=== PATIENT | female | born 1965 | race Caucasian/White ===

== ENCOUNTER 2016-03-16 15:15 | Emergency (ER) | payer OTHER ==
[2016-03-16 16:42] VITALS: BP 145/94
--- NOTE | 2016-03-16 17:14 | UC ---
Throat Pain/Nasal Robert HPI - HPI Summary HPI Summary: 50 yo female with sore throat since this AM swollen left ant cerv LN no f/c no URI symptoms - History of Current Complaint Chief Complaint: UCGeneralIllness Stated Complaint: SORE THROAT/SWOLLEN NECK Time Seen by Provider: 03/16/16 17:08 Hx Obtained From: Patient Onset/Duration: Gradual Onset, Lasting Hours Severity: Moderate Pain Intensity: 4 Pain Scale Used: 0-10 Numeric Cough: None - Epiglottits Risk Factors Epiglottis Risk Factors: Negative - Allergies/Home Medications Allergies/Adverse Reactions: Allergies Allergy/AdvReac Type Severity Reaction Status Date / Time Benzalkonium Chloride Allergy Intermediate Rash Verified 03/16/16 16:32 [From Ciprodex] Dexamethasone [From Ciprodex] Allergy Intermediate Rash Verified 03/16/16 16:32 Edetic Acid [From Ciprodex] Allergy Intermediate Rash Verified 03/16/16 16:32 Tyloxapol [From Ciprodex] Allergy Intermediate Rash Verified 03/16/16 16:32 Azithromycin [From Zithromax] Allergy Rash Verified 01/16/16 19:30 Codeine Allergy Vomiting Verified 01/16/16 19:30 Hydrocodone [From Vicodin] Allergy Vomiting Verified 01/16/16 19:30 Oxycodone [From Percocet] Allergy Vomiting Verified 01/16/16 19:30 Propoxyphene Allergy Vomiting Verified 01/16/16 19:30 [From Darvocet-N] tape Allergy Itching Uncoded 01/16/16 19:30 Home Medications: Home Medications SitaGLIPtin (NF) [Januvia (NF)] 100 mg PO DAILY 03/16/16 [History Confirmed 09/22] PMH/Surg Hx/FS Hx/Imm Hx Endocrine History Of: Reports: Diabetes - TYPE 2 Denies: Thyroid Disease Cardiovascular History Of: Reports: Hypertension Denies: Cardiac Disorders Respiratory History Of: Reports: Asthma Denies: COPD GI/ History Of: Reports: Gastroesophageal Reflux Denies: Ulcer - Surgical History Surgical History: Yes Surgery Procedure, Year, and Place: partial hysterectomy 1999. Gall bladder 1991. Tubal - Family History Known Family History: Positive: Cardiac Disease, Hypertension, Diabetes - Social History Alcohol Use: None Substance Use Type: None Smoking Status (MU): Former Smoker Have You Smoked in the Last Year: No When Did the Patient Quit Smoking/Using Tobacco: 5-10 YRS AGO - Immunization History Most Recent Influenza Vaccination: [id number] Review of Systems Constitutional: Negative Skin: Negative Eyes: Negative ENT: Sore Throat Respiratory: Negative Cardiovascular: Negative Gastrointestinal: Negative Genitourinary: Negative Motor: Negative Neurovascular: Negative Musculoskeletal: Arthralgia - chronic Neurological: Negative Psychological: Negative All Other Systems Reviewed And Are Negative: Yes Physical Exam Triage Information Reviewed: Yes Appearance: Well-Appearing, No Pain Distress, Well-Nourished Vital Signs: Initial Vital Signs Temp 98.5 F 03/16/16 16:36 Pulse 104 03/16/16 16:36 Resp 16 03/16/16 16:36 BP 145/94 03/16/16 16:36 Pulse Ox 97 03/16/16 16:36 Eyes: Positive: Conjunctiva Clear ENT: Positive: Hearing grossly normal, Pharyngeal erythema, TMs normal. Negative: Nasal congestion, Nasal drainage, TM bulging, TM dull, TM red, Tonsillar swelling, Tonsillar exudate, Trismus, Muffled/hoarse voice Dental: Negative: Dental Fracture @, Abscess @ Neck: Positive: Supple, Enlarged Nodes @ - left ant cervical Respiratory: Positive: Lungs clear, Normal breath sounds, No respiratory distress Cardiovascular: Positive: RRR, No Murmur, Tachycardia Musculoskeletal: Positive: Other: - IN WHEEL CHAIR DUE TO SEVERE DDD Neurological: Positive: Alert Psychological Exam: Normal Skin Exam: Normal Throat Pain/Nasal Course/Dx - Course Course Of Treatment: rs (-) - Differential Dx/Diagnosis Provider Diagnoses: ACUTE PHARYNGITIS Discharge - Discharge Plan Condition: Stable Disposition: HOME Prescriptions: Cephalexin CAP* [Keflex CAP*] 500 mg PO QID #20 cap Patient Education Materials: Pharyngitis (ED) Referrals: Jana Lord MD [Primary Care Provider] - Additional Instructions: RETURN FOR NEW OR WORSENING SYMPTOMS SEE YOUR MD ON 03/21 PLANNED
== END 2016-03-16 17:32 | disposition home or self-care (01) ==
LOC: UCCORT 15:15
DX: J02.9 Acute pharyngitis, unspecified (principal); E11.9 Type 2 diabetes mellitus without complications; Z87.891 Personal history of nicotine dependence; Z88.1 Allergy status to other antibiotic agents; Z88.5 Allergy status to narcotic agent
CPT/HCPCS: 87651; 99212; G0463

== ENCOUNTER 2016-07-14 15:31 | Emergency (ER) | payer OTHER ==
[2016-07-14 15:59] VITALS: BP 140/83
--- NOTE | 2016-07-14 16:40 | UC ---
Eye Complaint HPI - HPI Summary HPI Summary: Patient has been treated for a cellulitis of the upper eye lid of the left eye with amoxicillin, she has not been able to tolerate the amoxicillin as it hurts her stomach. she does not improvement in the eye swelling and pain. - History of Current Complaint Chief Complaint: UCEye Stated Complaint: EYE ISSUE Time Seen by Provider: 07/14/16 16:20 Hx Obtained From: Patient ?: No Onset/Duration: Sudden Onset, Lasting Days Severity Initially: Severe Severity Currently: Moderate Location of Injury: Conjunctiva, Eye Lid (upper) Associated Signs And Symptoms: Positive: Negative - Allergies/Home Medications Allergies/Adverse Reactions: Allergies Allergy/AdvReac Type Severity Reaction Status Date / Time Benzalkonium Chloride Allergy Intermediate Rash Verified 03/16/16 16:32 [From Ciprodex] Dexamethasone [From Ciprodex] Allergy Intermediate Rash Verified 03/16/16 16:32 Edetic Acid [From Ciprodex] Allergy Intermediate Rash Verified 03/16/16 16:32 Tyloxapol [From Ciprodex] Allergy Intermediate Rash Verified 03/16/16 16:32 Azithromycin [From Zithromax] Allergy Rash Verified 01/16/16 19:30 Codeine Allergy Vomiting Verified 01/16/16 19:30 Hydrocodone [From Vicodin] Allergy Vomiting Verified 01/16/16 19:30 Oxycodone [From Percocet] Allergy Vomiting Verified 01/16/16 19:30 Propoxyphene Allergy Vomiting Verified 01/16/16 19:30 [From Darvocet-N] Amoxicillin AdvReac Intermediate NAUSEA AND Verified 07/14/16 15:51 VOMITING. tape Allergy Itching Uncoded 01/16/16 19:30 PMH/Surg Hx/FS Hx/Imm Hx Previously Healthy: Yes - Surgical History Surgical History: Yes Surgery Procedure, Year, and Place: partial hysterectomy 1999. Gall bladder 1991. Tubal - Family History Known Family History: Positive: Cardiac Disease, Hypertension, Diabetes - Social History Alcohol Use: None Substance Use Type: None Smoking Status (MU): Former Smoker Have You Smoked in the Last Year: No When Did the Patient Quit Smoking/Using Tobacco: 5-10 YRS AGO - Immunization History Most Recent Influenza Vaccination: [id number] Review of Systems Constitutional: Negative Skin: Negative Eyes: Negative, Other - swelling of upper lid ENT: Negative Respiratory: Negative Cardiovascular: Negative Gastrointestinal: Negative Genitourinary: Negative Motor: Negative Neurovascular: Negative Musculoskeletal: Negative Neurological: Negative Psychological: Negative All Other Systems Reviewed And Are Negative: Yes Physical Exam Triage Information Reviewed: Yes Appearance: Well-Nourished, Ill-Appearing, Pain Distress Vital Signs: Initial Vital Signs Temp 98.6 F 07/14/16 15:54 Pulse 105 07/14/16 15:54 Resp 18 07/14/16 15:54 BP 140/83 07/14/16 15:54 Pulse Ox 95 07/14/16 15:54 Eyes: Positive: Conjunctiva Inflamed, Other: - upper eyelid swollen on left eye , left eye deviates laterally , sclera is white ENT Exam: Normal ENT: Positive: Hearing grossly normal, Pharynx normal, TMs normal Dental Exam: Normal Neck exam: Normal Neck: Positive: Supple, Nontender, No Lymphadenopathy Respiratory Exam: Normal Respiratory: Positive: Chest non-tender, Lungs clear, Normal breath sounds Cardiovascular Exam: Normal Cardiovascular: Positive: RRR, No Murmur, Pulses Normal Abdominal Exam: Normal Abdomen Description: Positive: Nontender, No Organomegaly, Soft Bowel Sounds: Positive: Present Musculoskeletal Exam: Normal Musculoskeletal: Positive: Strength Intact, ROM Intact, No Edema Neurological Exam: Normal Neurological: Positive: Alert, Muscle Tone Normal Psychological Exam: Normal Skin Exam: Normal Eye Complaint Course/Dx - Course Course Of Treatment: hx obtained, exam performed ,meds reviewed, treated for cellulitis - Differential Dx/Diagnosis Differential Diagnosis/HQI/PQRI: Corneal Abrasion, Detached Retina, Periorbital Cellulitis, Other Provider Diagnoses: orbital cellulitis of left eye Discharge - Discharge Plan Condition: Stable Disposition: HOME Patient Education Materials: Orbital Cellulitis (ED) Additional Instructions: 1. stop the amoxicillin 2. start the keflex. 3. continue with the warm compresses multiple times a day.
== END 2016-07-14 16:45 | disposition home or self-care (01) ==
LOC: UCCORT 15:31
DX: H05.012 Cellulitis of left orbit (principal); Z88.5 Allergy status to narcotic agent; Z88.0 Allergy status to penicillin; Z87.891 Personal history of nicotine dependence
CPT/HCPCS: 99212; G0463

== ENCOUNTER 2016-12-31 16:58 | Emergency (ER) | payer OTHER ==
--- NOTE | 2016-12-31 17:26 | UC ---
Shoulder Pain HPI - HPI Summary HPI Summary: 51 year old female presents with complains of right shoulder pain with no trauma. - History of Current Complaint Stated Complaint: RT SHOULDER PAIN Time Seen by Provider: 12/31/16 17:26 Hx Obtained From: Patient Onset/Duration: Lasting Weeks Timing: Constant Severity Initially: Moderate Severity Currently: Moderate Pain Scale Used: 0-10 Numeric - 8 Character: Sharp Aggravating Factor(s): Movement, Lifting, Flexion, Extension, External Rotation , Abduction Alleviating Factor(s): Rest Associated Signs And Symptoms: Positive: Negative - Allergies/Home Medications Allergies/Adverse Reactions: Allergies Allergy/AdvReac Type Severity Reaction Status Date / Time Benzalkonium Chloride Allergy Intermediate Rash Verified 12/31/16 17:30 [From Ciprodex] Dexamethasone [From Ciprodex] Allergy Intermediate Rash Verified 12/31/16 17:30 Edetic Acid [From Ciprodex] Allergy Intermediate Rash Verified 12/31/16 17:30 Tyloxapol [From Ciprodex] Allergy Intermediate Rash Verified 12/31/16 17:30 Azithromycin [From Zithromax] Allergy Rash Verified 12/31/16 17:30 Codeine Allergy Vomiting Verified 12/31/16 17:30 Hydrocodone [From Vicodin] Allergy Vomiting Verified 12/31/16 17:30 Oxycodone [From Percocet] Allergy Vomiting Verified 12/31/16 17:30 Propoxyphene Allergy Vomiting Verified 12/31/16 17:30 [From Darvocet-N] Amoxicillin AdvReac Intermediate NAUSEA AND Verified 12/31/16 17:30 VOMITING. tape Allergy Itching Uncoded 12/31/16 17:30 PMH/Surg Hx/FS Hx/Imm Hx Previously Healthy: Yes - Surgical History Surgical History: Yes Surgery Procedure, Year, and Place: partial hysterectomy 1999. Gall bladder 1991. Tubal - Family History Known Family History: Positive: Cardiac Disease, Hypertension, Diabetes - Social History Alcohol Use: None Substance Use Type: None Smoking Status (MU): Former Smoker Have You Smoked in the Last Year: No When Did the Patient Quit Smoking/Using Tobacco: 5-10 YRS AGO - Immunization History Most Recent Influenza Vaccination: [id number] Review of Systems Constitutional: Negative Skin: Negative Eyes: Negative ENT: Negative Respiratory: Negative Cardiovascular: Negative Gastrointestinal: Negative Genitourinary: Negative Motor: Negative Neurovascular: Negative Musculoskeletal: Other: - right shoulder pain Neurological: Negative Psychological: Negative All Other Systems Reviewed And Are Negative: Yes Physical Exam Triage Information Reviewed: Yes Vital Signs Reviewed: Yes Eye Exam: Normal ENT Exam: Normal Dental Exam: Normal Neck exam: Normal Neck: Positive: 1 Respiratory Exam: Normal Cardiovascular Exam: Normal Abdominal Exam: Normal Musculoskeletal: Positive: Other: - right shoulder pain Neurological Exam: Normal Psychological Exam: Normal Skin Exam: Normal Shoulder Course/Dx - Differential Dx/Diagnosis Provider Diagnoses: right shoulder pain Discharge - Discharge Plan Condition: Stable Disposition: HOME Patient Education Materials: Shoulder Pain (ED) Referrals: Jana Lord MD [Primary Care Provider] -
[2016-12-31 17:30] VITALS: BP 138/88
--- NOTE | 2016-12-31 18:03 | RAD ---
INDICATION: Right shoulder pain. TECHNIQUE: 4 views of the right shoulder were obtained. FINDINGS: The bones are in normal alignment. No fracture is seen. There is moderate osteoarthritic change in the acromioclavicular joint and mild osteoarthritic change in the glenohumeral joint. IMPRESSION: MILD TO MODERATE OSTEOARTHRITIC CHANGE.
== END 2016-12-31 18:17 | disposition home or self-care (01) ==
LOC: UCCORT 16:58
DX: M25.511 Pain in right shoulder (principal); Z88.1 Allergy status to other antibiotic agents; Z88.5 Allergy status to narcotic agent; Z88.8 Allergy status to other drugs, medicaments and biological substances; Z91.048 Other nonmedicinal substance allergy status; Z87.891 Personal history of nicotine dependence
CPT/HCPCS: 99212; G0463

== ENCOUNTER 2017-02-17 13:43 | Emergency (ER) | payer OTHER ==
[2017-02-17 14:38] VITALS: BP 155/83
--- NOTE | 2017-02-17 15:55 | UC ---
Throat Pain/Nasal Robert HPI - HPI Summary HPI Summary: 51 YO FEMALE WITH 4-6 WEEK HX OF SINUS PRESSURE AND PAIN NO F/C IN AMs SHE OFTEN NOTES A BLOODY NASAL D/C FOLLOWED BY THICK NASAL DISCHARGE MEDINA NO WHEEZING NO CP OR SOB - History of Current Complaint Chief Complaint: UCGeneralIllness Stated Complaint: STUFFY NOSE,SNEEZING,RESPIRTORY Time Seen by Provider: 02/17/17 15:49 Hx Obtained From: Patient Hx Last Menstrual Period: n/a Onset/Duration: Gradual Onset, Lasting Weeks Severity: Mild Pain Intensity: 3 Pain Scale Used: 0-10 Numeric Cough: None Associated Signs & Symptoms: Positive: Sinus Discomfort, Nasal Discharge - Allergies/Home Medications Allergies/Adverse Reactions: Allergies Allergy/AdvReac Type Severity Reaction Status Date / Time Benzalkonium Chloride Allergy Intermediate Rash Verified 02/17/17 14:38 [From Ciprodex] Dexamethasone [From Ciprodex] Allergy Intermediate Rash Verified 02/17/17 14:38 Edetic Acid [From Ciprodex] Allergy Intermediate Rash Verified 02/17/17 14:38 Tyloxapol [From Ciprodex] Allergy Intermediate Rash Verified 02/17/17 14:38 Azithromycin [From Zithromax] Allergy Rash Verified 02/17/17 14:38 Codeine Allergy Vomiting Verified 02/17/17 14:38 Hydrocodone [From Vicodin] Allergy Vomiting Verified 02/17/17 14:38 Oxycodone [From Percocet] Allergy Vomiting Verified 02/17/17 14:38 Propoxyphene Allergy Vomiting Verified 02/17/17 14:38 [From Darvocet-N] Amoxicillin AdvReac Intermediate NAUSEA AND Verified 02/17/17 14:38 VOMITING. tape Allergy Itching Uncoded 02/17/17 14:38 PMH/Surg Hx/FS Hx/Imm Hx Endocrine History: Diabetes Cardiovascular History: Hypertension Respiratory History: Asthma - Surgical History Surgical History: Yes Surgery Procedure, Year, and Place: partial hysterectomy 1999. Gall bladder 1991. Tubal - Family History Known Family History: Positive: Cardiac Disease, Hypertension, Diabetes - Social History Alcohol Use: None Substance Use Type: None Smoking Status (MU): Former Smoker Have You Smoked in the Last Year: No When Did the Patient Quit Smoking/Using Tobacco: 5-10 YRS AGO - Immunization History Most Recent Influenza Vaccination: current for Review of Systems Constitutional: Negative Skin: Negative Eyes: Negative ENT: Nasal Discharge, Sinus Congestion, Sinus Pain/Tenderness Respiratory: Negative Cardiovascular: Negative Gastrointestinal: Negative Genitourinary: Negative Motor: Negative Neurovascular: Negative Musculoskeletal: Negative Neurological: Negative Psychological: Negative Is Patient Immunocompromised?: No All Other Systems Reviewed And Are Negative: Yes Physical Exam Triage Information Reviewed: Yes Appearance: Well-Appearing, No Pain Distress, Well-Nourished Vital Signs: Initial Vital Signs Temp 98.0 F 02/17/17 14:34 Pulse 99 02/17/17 14:34 Resp 16 02/17/17 14:34 BP 155/83 02/17/17 14:34 Pulse Ox 98 02/17/17 14:34 Vital Signs Reviewed: Yes Eyes: Positive: Conjunctiva Clear ENT: Positive: Hearing grossly normal, Nasal congestion, Nasal drainage, TMs normal, Sinus tenderness, Uvula midline Neck: Positive: Supple, Nontender, No Lymphadenopathy Respiratory: Positive: Lungs clear, Normal breath sounds, No respiratory distress Cardiovascular: Positive: RRR, No Murmur Musculoskeletal: Positive: ROM Intact, No Edema Neurological: Positive: Alert Psychological Exam: Normal Skin Exam: Normal Diagnostics - Laboratory Diagnostic Studies Completed/Ordered: PULSE OX (RA) 98% COMMENT: NORMAL/ NOT HYPOXIC Throat Pain/Nasal Course/Dx - Differential Dx/Diagnosis Provider Diagnoses: ACUTE SINUSITIS Discharge - Discharge Plan Condition: Stable Disposition: HOME Prescriptions: Amoxicillin PO (*) [Amoxicillin 875 MG (*)] 875 mg PO BID #20 tab Patient Education Materials: Sinusitis (ED) Referrals: Jana Lord MD [Primary Care Provider] - 5 Days (IF NOT BETTER) Additional Instructions: SALINE NASAL SPRAY TWICE DAILY
== END 2017-02-17 16:03 | disposition home or self-care (01) ==
LOC: UCCORT 13:43
DX: J01.90 Acute sinusitis, unspecified (principal); E11.9 Type 2 diabetes mellitus without complications; I10 Essential (primary) hypertension; J45.909 Unspecified asthma, uncomplicated; Z87.891 Personal history of nicotine dependence; Z88.3 Allergy status to other anti-infective agents; Z88.5 Allergy status to narcotic agent
CPT/HCPCS: 99212; G0463

== ENCOUNTER 2017-06-22 19:06 | Emergency (ER) | payer OTHER ==
[2017-06-22 19:22] VITALS: BP 149/90
--- NOTE | 2017-06-22 19:35 | UC ---
Skin Complaint HPI - HPI Summary HPI Summary: Pt c/o sudden onset of painful sore on roof of mouth that began 2 days ago. Pt has been applying OTC numbing medication with temporary relief. Pt now says that area looks like a "cut on the roof of her mouth". - History of Current Complaint Chief Complaint: UCDentalProblem Time Seen by Provider: 06/22/17 19:24 Stated Complaint: ORAL COMPLAINT Hx Obtained From: Patient Hx Last Menstrual Period: n/a ?: No Onset/Duration: Sudden Onset, Still Present Skin Exposure Onset/Duration: Days Ago Timing: Constant Onset Severity: Mild Current Severity: Mild Pain Intensity: 7 Location: Discrete Character: Painful Aggravating Factor(s): Touch Alleviating Factor(s): OTC Meds Associated Signs & Symptoms: Positive: Tenderness - Allergy/Home Medications Allergies/Adverse Reactions: Allergies Allergy/AdvReac Type Severity Reaction Status Date / Time azithromycin Allergy Rash Verified 06/22/17 19:46 benzalkonium Allergy Rash Verified 06/22/17 19:46 dexamethasone Allergy Rash Verified 06/22/17 19:46 edetic acid Allergy Rash Verified 06/22/17 19:46 tyloxapol Allergy Rash Verified 06/22/17 19:46 amoxicillin AdvReac Nausea And Verified 06/22/17 19:46 Vomiting codeine AdvReac Vomiting Verified 06/22/17 19:46 hydrocodone AdvReac Vomiting Verified 06/22/17 19:46 oxycodone AdvReac Vomiting Verified 06/22/17 19:46 propoxyphene AdvReac Vomiting Verified 06/22/17 19:46 tape Allergy Itching Uncoded 02/17/17 14:38 Review of Systems Constitutional: Negative Skin: Negative Eyes: Negative ENT: Other - mouth pain/sore Respiratory: Negative Cardiovascular: Negative Gastrointestinal: Negative Genitourinary: Negative Motor: Negative Neurovascular: Negative Musculoskeletal: Negative Neurological: Negative Psychological: Negative Is Patient Immunocompromised?: No All Other Systems Reviewed And Are Negative: Yes PMH/Surg Hx/FS Hx/Imm Hx Previously Healthy: Yes - Surgical History Surgical History: Yes Surgery Procedure, Year, and Place: partial hysterectomy 1999. Gall bladder 1991. Tubal - Family History Known Family History: Positive: Cardiac Disease, Hypertension, Diabetes - Social History Lives: With Family Alcohol Use: None Substance Use Type: None Smoking Status (MU): Former Smoker Have You Smoked in the Last Year: No When Did the Patient Quit Smoking/Using Tobacco: 5-10 YRS AGO - Immunization History Most Recent Influenza Vaccination: current for Physical Exam Triage Information Reviewed: Yes Appearance: Well-Appearing Vital Signs: Initial Vital Signs Temp 97.9 F 06/22/17 19:17 Pulse 95 06/22/17 19:17 Resp 14 06/22/17 19:17 BP 149/90 06/22/17 19:17 Pulse Ox 98 06/22/17 19:17 Vital Signs Reviewed: Yes Eye Exam: Normal ENT Exam: Normal Dental: Positive: Other: - soft palate sore Neck exam: Normal Respiratory Exam: Normal Musculoskeletal Exam: Normal Neurological Exam: Normal Psychological Exam: Normal Skin Exam: Other - mouth sore middle soft palate Course/Dx - Diagnoses Provider Diagnoses: healing canker sore soft palate Discharge - Sign-Out/Discharge Documenting (check all that apply): Discharge/Admit/Transfer - Discharge Plan Condition: Stable Disposition: HOME Prescriptions: Lidocaine 2% VISCOUS* [Xylocaine 2% Viscous*] 15 ml SWISH SPIT Q6H PRN #1 btl PRN Reason: Pain Patient Education Materials: Canker Sores (ED) Referrals: Jana Lord MD [Primary Care Provider] - If Needed - Billing Disposition and Condition Condition: STABLE Disposition: HOME
== END 2017-06-22 19:45 | disposition home or self-care (01) ==
LOC: UCCORT 19:06
DX: K12.0 Recurrent oral aphthae (principal); Z88.1 Allergy status to other antibiotic agents; Z88.5 Allergy status to narcotic agent; Z88.0 Allergy status to penicillin; Z88.8 Allergy status to other drugs, medicaments and biological substances
CPT/HCPCS: 99212; G0463

== ENCOUNTER 2018-05-01 17:06 | Emergency (ER) | payer OTHER ==
[2018-05-01 17:32] VITALS: BP 148/67
--- NOTE | 2018-05-01 18:53 | UC ---
UC General HPI - HPI Summary HPI Summary: PT C/O FEELING HOT THEN CHILLED X 6 DAYS. SHE ALSO NOTED L SIDE OF NOSE WAS A LITTLE DRY AND BLOODY. SHE DID HAVE A MILD HEADACHE BUT NONE NOW. PT ALSO NOTES AN ITCHY RASH ON HER CHEST, TX WITH TOPICAL STEROID. HX DM, BS STABLE. NO COUGH, SOB, V/D/DYSURIA. - History of Current Complaint Chief Complaint: UCRespiratory Stated Complaint: FEVER, CHILLS, CONGESTION Time Seen by Provider: 05/01/18 18:45 Hx Obtained From: Patient Hx Last Menstrual Period: n/a Pain Intensity: 4 Associated Signs & Symptoms: Negative: Chest Pain - Allergy/Home Medications Allergies/Adverse Reactions: Allergies Allergy/AdvReac Type Severity Reaction Status Date / Time azithromycin Allergy Rash Verified 05/01/18 17:24 benzalkonium Allergy Rash Verified 05/01/18 17:24 dexamethasone Allergy Rash Verified 05/01/18 17:24 edetic acid Allergy Rash Verified 05/01/18 17:24 tyloxapol Allergy Rash Verified 05/01/18 17:24 amoxicillin AdvReac Nausea And Verified 05/01/18 17:24 Vomiting codeine AdvReac Vomiting Verified 05/01/18 17:24 hydrocodone AdvReac Vomiting Verified 05/01/18 17:24 oxycodone AdvReac Vomiting Verified 05/01/18 17:24 propoxyphene AdvReac Vomiting Verified 05/01/18 17:24 tape Allergy Itching Uncoded 05/01/18 17:24 Home Medications: Home Medications Insulin Glargine,Hum.rec.anlog [Ivan Wiseman U-100] 40 unit QAM 05/01/18 [ History Confirmed 05/01/18] PMH/Surg Hx/FS Hx/Imm Hx - Additional Past Medical History Additional PMH: LAZY EYE Endocrine History: Diabetes Cardiovascular History: Hypertension GI/ History: Gastroesophageal Reflux Psychological History: Anxiety - Surgical History Surgical History: Yes Surgery Procedure, Year, and Place: partial hysterectomy 1999. Gall bladder 1991. Tubal - Family History Known Family History: Positive: Cardiac Disease, Hypertension, Diabetes - Social History Alcohol Use: None Substance Use Type: None Smoking Status (MU): Former Smoker Have You Smoked in the Last Year: No When Did the Patient Quit Smoking/Using Tobacco: 5-10 YRS AGO - Immunization History Most Recent Influenza Vaccination: current for Review of Systems All Other Systems Reviewed And Are Negative: Yes Constitutional: Positive: Fever, Chills Skin: Positive: Rash ENT: Positive: Nasal Discharge - L NARE Neurological: Positive: Headache Physical Exam Triage Information Reviewed: Yes Appearance: Well-Appearing Vital Signs: Initial Vital Signs Temp 97.2 F 05/01/18 17:25 Pulse 67 05/01/18 17:25 Resp 18 05/01/18 17:25 BP 148/67 05/01/18 17:25 Pulse Ox 98 05/01/18 17:25 Vital Signs Reviewed: Yes Eyes: Positive: Conjunctiva Inflamed ENT: Positive: Pharynx normal, TMs normal. Negative: Nasal drainage Neck: Positive: Supple, Nontender, No Lymphadenopathy Respiratory: Positive: Lungs clear, Normal breath sounds, No respiratory distress Cardiovascular: Positive: RRR, No Murmur Abdomen Description: Positive: Nontender, No Organomegaly, Soft Bowel Sounds: Positive: Present Musculoskeletal: Positive: ROM Intact Neurological: Positive: Alert Psychological: Positive: Age Appropriate Behavior Skin Exam: Normal, Other - ABOUT 6 SMALL PINK AREAS ON CHEST WITH MILD EXCORIATION. NO BLISTERING, NOT PETECHIAL AND NO BURROWS. Course/Dx - Differential Dx - Multi-Symptom Differential Diagnoses: Other - NO INDICATION FOR ANTIBIOTIC - Diagnoses Provider Diagnosis: Rash, Viral syndrome Discharge - Sign-Out/Discharge Documenting (check all that apply): Patient Departure All imaging exams completed and their final reports reviewed: No Studies - Discharge Plan Condition: Stable Disposition: HOME Patient Education Materials: Acute Rash (ED), Viral Syndrome (ED) Referrals: Jana Lord MD [Primary Care Provider] - Additional Instructions: FOLLOW UP PRIMARY CARE IF NOT BETTER IN 3 DAYS OR SOONER IF WORSE. - Billing Disposition and Condition Condition: STABLE Disposition: Home - Attestation Statements Provider Attestation: Per institutional requirements, I have reviewed the chart, however, I was not consulted specifically or made aware of this patient by the midlevel provider. I did not personally evaluate, interact with , or disposition this patient.
== END 2018-05-01 19:02 | disposition home or self-care (01) ==
LOC: UCCORT 17:06
DX: B34.9 Viral infection, unspecified (principal); R21 Rash and other nonspecific skin eruption; R51 Headache; E11.9 Type 2 diabetes mellitus without complications; Z88.0 Allergy status to penicillin; Z88.8 Allergy status to other drugs, medicaments and biological substances; Z88.5 Allergy status to narcotic agent; Z91.09 Other allergy status, other than to drugs and biological substances; Z79.4 Long term (current) use of insulin; Z87.891 Personal history of nicotine dependence
CPT/HCPCS: 99211; G0463

== ENCOUNTER 2018-09-09 08:45 | Emergency (ER) | payer OTHER ==
[2018-09-09 09:16] VITALS: BP 152/96
--- NOTE | 2018-09-09 09:37 | UC ---
Skin Complaint HPI - HPI Summary HPI Summary: 53-year-old female presents with concerns for an infected cyst on her back. Patient states that at the end of last month she was evaluated at the [facility] emergency room for similar concern. States they did open and draining the cyst at that time. She followed up with her primary care provider on 09/02/2018 and was having some improvement in her symptoms. States that the wound has since closed up and over the past few days they have noticed that it is become red, tender and swollen. Patient states her has tried to squeeze the lesions and has expressed a small amount of brownish colored drainage. Denies fever or chills. - History of Current Complaint Chief Complaint: UCSkin Time Seen by Provider: 09/09/18 09:22 Stated Complaint: SKIN COMPLAINT Hx Obtained From: Patient Hx Last Menstrual Period: n/a Pain Intensity: 0 - Allergy/Home Medications Allergies/Adverse Reactions: Allergies Allergy/AdvReac Type Severity Reaction Status Date / Time azithromycin Allergy Rash Verified 09/09/18 09:18 benzalkonium Allergy Rash Verified 09/09/18 09:18 dexamethasone Allergy Rash Verified 09/09/18 09:18 edetic acid Allergy Rash Verified 09/09/18 09:18 tyloxapol Allergy Rash Verified 09/09/18 09:18 amoxicillin AdvReac Nausea And Verified 09/09/18 09:18 Vomiting codeine AdvReac Vomiting Verified 09/09/18 09:18 hydrocodone AdvReac Vomiting Verified 09/09/18 09:18 oxycodone AdvReac Vomiting Verified 09/09/18 09:18 propoxyphene AdvReac Vomiting Verified 09/09/18 09:18 tape Allergy Itching Uncoded 09/09/18 09:18 PMH/Surg Hx/FS Hx/Imm Hx Endocrine History: Diabetes Cardiovascular History: Hypertension Respiratory History: COPD GI/ History: Gastroesophageal Reflux - Surgical History Surgical History: Yes Surgery Procedure, Year, and Place: partial hysterectomy 1999. Gall bladder 1991. Tubal - Family History Known Family History: Positive: Cardiac Disease, Hypertension, Diabetes - Social History Occupation: Unemployed Lives: With Family Alcohol Use: None Substance Use Type: None Smoking Status (MU): Former Smoker Have You Smoked in the Last Year: No When Did the Patient Quit Smoking/Using Tobacco: 5-10 YRS AGO - Immunization History Most Recent Influenza Vaccination: current for Review of Systems All Other Systems Reviewed And Are Negative: Yes Constitutional: Negative: Fever, Chills Skin: Positive: Other - See HPI Respiratory: Positive: Negative Cardiovascular: Positive: Negative Gastrointestinal: Positive: Negative Genitourinary: Positive: Negative Musculoskeletal: Positive: Negative Neurological: Positive: Negative Is Patient Immunocompromised?: No Physical Exam - Summary Physical Exam Summary: GENERAL APPEARANCE: Well developed, well nourished, alert and cooperative, and appears to be in no acute distress. CARDIAC: Normal S1 and S2. No S3, S4 or murmurs. Rhythm is regular. There is no peripheral edema, cyanosis or pallor. Extremities are warm and well perfused. Capillary refill is less than 2 seconds. Peripheral pulses intact. LUNGS: Clear to auscultation without rales, rhonchi, wheezing or diminished breath sounds. ABDOMEN: Positive bowel sounds. Soft, nondistended, nontender. No guarding or rebound. No masses or hepatosplenomegally. MUSKULOSKELETAL: ROM intact to all extremities. No joint erythema or tenderness. Normal muscular development. Normal gait. SKIN: 8 cm area of erythema and edema to the mid upper thoracic back with small amount of purulent drainage. No induration or fluctuance noted. There does appear to be a large cystic mass below the area of erythema approximately 10 cm in diameter. Triage Information Reviewed: Yes Vital Signs: Initial Vital Signs Temp 97.3 F 09/09/18 09:08 Pulse 98 09/09/18 09:08 Resp 18 09/09/18 09:08 BP 152/96 09/09/18 09:08 Pulse Ox 99 09/09/18 09:08 Vital Signs Reviewed: Yes Course/Dx - Course Course Of Treatment: 53-year-old female presents with concerns for an infected cyst on her back. Patient states that at the end of last month she was evaluated at the [facility] emergency room for similar concern. States they did open and draining the cyst at that time. She followed up with her primary care provider on 09/02/2018 and was having some improvement in her symptoms. States that the wound has since closed up and over the past few days they have noticed that it is become red, tender and swollen. Patient states her has tried to squeeze the lesions and has expressed a small amount of brownish colored drainage. Denies fever or chills. Afebrile. Hypertensive otherwise vital signs stable. Patient had a 8 cm area of erythema and edema to the mid upper thoracic back with small amount of purulent drainage. No induration or fluctuance noted. There does appear to be a large cystic mass below the area of erythema approximately 10 cm in diameter. This is consistent with an infected sebaceous cyst and I am recommending that we treat the infection at this time and have her follow-up with her primary care provider in 3 days for recheck. She will likely need follow-up with surgery for definitive removal of the sebaceous cyst. She is to take clindamycin 300 mg 3 times a day 7 days. Anticipatory guidance and warning symptoms were reviewed with the patient. Verbalizes understanding and agrees to plan of care. - Differential Diagnoses - Skin Complaint Differential Diagnoses: Abscess, Cellulitis, MRSA - Diagnoses Provider Diagnosis: Infected sebaceous cyst Discharge - Sign-Out/Discharge Documenting (check all that apply): Patient Departure All imaging exams completed and their final reports reviewed: No Studies - Discharge Plan Condition: Stable Disposition: HOME Prescriptions: Clindamycin HCl 300 mg PO TID #21 capsule Patient Education Materials: Cellulitis (ED) Referrals: Jana Lord MD [Primary Care Provider] - 3 Days Additional Instructions: I suspect that the lesion on your back is an infected sebaceous cyst. We will need to treat the infection and he will likely need to follow up with a surgeon to have that cyst removed once the infection is cleared. Take clindamycin 300 mg 1 capsule 3 times a day for 7 days. Keep the area covered with a gauze dressing to catch any drainage. Take acetaminophen (Tylenol) according to directions as needed for pain. Follow-up with your primary care provider in 3 days to have the infection rechecked. Seek immediate medical attention in the emergency room if you develop a fever greater than 100.5 F, have redness that continues to spread, have severe pain that is not managed with acetaminophen, or any worsening of symptoms. - Billing Disposition and Condition Condition: STABLE Disposition: Home
== END 2018-09-09 10:05 | disposition home or self-care (01) ==
LOC: UCCORT 08:45
DX: Z51.89 Encounter for other specified aftercare (principal); L72.3 Sebaceous cyst; E11.9 Type 2 diabetes mellitus without complications; I10 Essential (primary) hypertension; Z88.0 Allergy status to penicillin; Z88.1 Allergy status to other antibiotic agents; Z87.891 Personal history of nicotine dependence
CPT/HCPCS: 99212; G0463

== ENCOUNTER 2019-05-09 10:15 | Emergency (ER) | payer OTHER ==
--- NOTE | 2019-05-09 10:59 | UC ---
Throat Pain/Nasal Robert HPI - HPI Summary HPI Summary: 53 yo woman with mild learning disability, here with concern about persistent dry nose and draiange which she has had for well over a week. She is concerned about the persistence of this. She was seen at the ER on 04/26, dx'd with sinusitis, and given amoxicllin. She was seen by Dr. Lord on 05/05, advised still a red throat, no change in treatment. She thinks that she has allergies, but has never treated them. Hx of asthma, uses albuterol and flovent. Denies any cough, fever, dyspnea, nausea, vomiting. She has been watching the news and admits to anxiety and worry, finds it hard to articulate the reason for it. Mostly self quarantining; her room mate has no symptoms. - History of Current Complaint Chief Complaint: UCRespiratory Stated Complaint: CONGESTION Time Seen by Provider: 05/09/19 10:57 Hx Obtained From: Patient Hx Last Menstrual Period: n/a Onset/Duration: Gradual Onset, Lasting Weeks Pain Intensity: 0 Cough: None Associated Signs & Symptoms: Positive: Negative - Has dry nasal passages, uses saline drops Related History: Seasonal Allergies - not treated. - Epiglottits Risk Factors Epiglottis Risk Factors: Negative - Allergies/Home Medications Allergies/Adverse Reactions: Allergies Allergy/AdvReac Type Severity Reaction Status Date / Time azithromycin Allergy Rash Verified 05/09/19 10:24 benzalkonium Allergy Rash Verified 05/09/19 10:24 dexamethasone Allergy Rash Verified 05/09/19 10:24 edetic acid Allergy Rash Verified 05/09/19 10:24 tyloxapol Allergy Rash Verified 05/09/19 10:24 amoxicillin AdvReac Nausea And Verified 05/09/19 10:24 Vomiting codeine AdvReac Vomiting Verified 05/09/19 10:24 hydrocodone AdvReac Vomiting Verified 05/09/19 10:24 oxycodone AdvReac Vomiting Verified 05/09/19 10:24 propoxyphene AdvReac Vomiting Verified 05/09/19 10:24 tape Allergy Itching Uncoded 05/09/19 10:24 Home Medications: Home Medications Albuterol HFA INHALER* [Ventolin HFA Inhaler*] 2 puff INH Q4H PRN 07/01/14 [ History Confirmed 05/09/19] Fluticasone HFA 220 mcg(NF) [Flovent Hfa 220 Mcg(NF)] 1 puff INH BID 07/01/14 [ History Confirmed 05/09/19] Hydrochlorothiazide TAB* [Hydrodiuril TAB*] 12.5 mg PO DAILY 07/01/14 [History Confirmed 05/09/19] Lisinopril TAB* [Prinivil TAB 10 MG*] 10 mg PO DAILY 07/01/14 [History Confirmed 05/09/19] Omeprazole CAP (NF) [Prilosec CAP* 20 MG] 20 mg PO BID 07/01/14 [History Confirmed 05/09/19] Zolpidem TAB* [Ambien*] 10 mg PO BEDTIME PRN 07/01/14 [History Confirmed ] amLODIPine TAB* [Norvasc 5 mg TAB*] 10 mg PO DAILY 07/01/14 [History Confirmed 05/09/19] metFORMIN* [Glucophage 500 MG TAB *] 1,000 mg PO BID 07/01/14 [History Confirmed 05/09/19] ALPRAZolam TAB* [Xanax TAB*] 0.25 mg PO BEDTIME 05/18/15 [History Confirmed 03/28] SitaGLIPtin (NF) [Januvia (NF)] 100 mg PO DAILY 03/16/16 [History Confirmed 03/28] Methocarbamol TAB* [Robaxin 500 MG TAB*] 500 mg PO TID PRN #30 tab 12/31/16 [Rx Confirmed 05/09/19] Insulin Glargine,Hum.rec.anlog [Ivan Wiseman U-100] 45 unit QAM 05/01/18 [ History Confirmed 05/09/19] Beclomethasone Dipropionate [Qnasl] 10.6 gm NS DAILY #1 hfa.aer.ad 05/09/19 [Rx] Fexofenadine HCl 180 mg PO DAILY #30 tablet 05/09/19 [Rx] PMH/Surg Hx/FS Hx/Imm Hx Endocrine History: Diabetes, Other - obesity Cardiovascular History: Hypertension Respiratory History: Asthma - Surgical History Surgical History: Yes Surgery Procedure, Year, and Place: partial hysterectomy 1999. Gall bladder 1991. Tubal. cyst removed on back - Family History Known Family History: Positive: Cardiac Disease, Hypertension, Diabetes - Social History Occupation: Disabled Lives: Dormitory/Roommates Alcohol Use: None Substance Use Type: None Smoking Status (MU): Former Smoker Have You Smoked in the Last Year: No When Did the Patient Quit Smoking/Using Tobacco: 5-10 YRS AGO - Immunization History Most Recent Influenza Vaccination: current for 2017/2017 Review of Systems All Other Systems Reviewed And Are Negative: Yes Constitutional: Positive: Negative Skin: Positive: Negative Eyes: Positive: Negative ENT: Positive: Other - dry nasal passages.. Negative: Sore Throat, Nasal Discharge Respiratory: Positive: Other - states no hx of sleep apnea.. Negative: Shortness Of Breath, Cough Cardiovascular: Positive: Negative Gastrointestinal: Positive: Negative Genitourinary: Positive: Negative Motor: Positive: Negative Neurovascular: Positive: Negative Musculoskeletal: Positive: Negative Neurological/Mental Status: Positive: Negative Psychological: Positive: Anxious Is Patient Immunocompromised?: No Physical Exam Triage Information Reviewed: Yes Appearance: Obese, Other: - Overweight woman in no acute distress. Expresses mild anxiety over news of pandemic and feels worried. Eye Exam: Other - right esoptropia (chronic) Eyes: Positive: Conjunctiva Clear ENT: Positive: Pharyngeal erythema, Other - + postnasal drainage.. Negative: Tonsillar swelling Dental Exam: Normal Neck: Positive: Supple, Nontender, No Lymphadenopathy Respiratory: Positive: Lungs clear, Normal breath sounds, No respiratory distress Cardiovascular: Positive: RRR, No Murmur Musculoskeletal Exam: Normal Neurological Exam: Normal Neurological: Positive: Alert Psychological Exam: Other - anxious. Skin Exam: Other - ++ hand erythema and mild swelling Throat Pain/Nasal Course/Dx - Course Course Of Treatment: discussed allergies, and suggested treatment with follow up to Dr. Lord. - Differential Dx/Diagnosis Differential Diagnosis/HQI/PQRI: Sinusitis, URI, Other - environmental allergies. Provider Diagnosis: Environmental and seasonal allergies Discharge ED - Sign-Out/Discharge Documenting (check all that apply): Patient Departure All imaging exams completed and their final reports reviewed: No Studies - Discharge Plan Condition: Stable Disposition: HOME Prescriptions: Beclomethasone Dipropionate [Qnasl] 10.6 gm NS DAILY #1 hfa.[email or web address] Fexofenadine HCl 180 mg PO DAILY #30 tablet Patient Education Materials: Allergies (ED) Referrals: Jana Lord MD [Primary Care Provider] - Additional Instructions: Your symptoms are consistent with allergies. Fexofenadine (generic marcus) 180mg daily has been prescribed, as well as a steroid nasal spray. THE FEXOFENADINE CAN BE PURCHASED OVER THE COUNTER IF YOUR INSURANCE DOES NOT COVER THE PRESCRIPTION. If the Qnasl is not covered, you can try use of over the counter Flonase. It would be a good idea to try use of the antihistamine alone for a few days before using the nose spray if the medication is not paid for by your insurance. Your blood pressure is elevated today. I suggest a follow up with Dr. Lord in 1 -2 weeks for evaluation and recheck of your blood pressure. - Billing Disposition and Condition Condition: STABLE Disposition: Home
[2019-05-09 11:35] VITALS: BP 180/98
== END 2019-05-09 11:39 | disposition home or self-care (01) ==
LOC: UCCORT 10:15
DX: J45.909 Unspecified asthma, uncomplicated (principal); E11.9 Type 2 diabetes mellitus without complications; Z79.4 Long term (current) use of insulin; Z79.84 Long term (current) use of oral hypoglycemic drugs; I10 Essential (primary) hypertension; Z79.899 Other long term (current) drug therapy; Z88.1 Allergy status to other antibiotic agents; Z88.5 Allergy status to narcotic agent; Z88.0 Allergy status to penicillin; Z88.8 Allergy status to other drugs, medicaments and biological substances; Z91.048 Other nonmedicinal substance allergy status; Z87.891 Personal history of nicotine dependence
CPT/HCPCS: 99212; G0463